=== PATIENT | female | born 1975 | race African-American/Black ===

== ENCOUNTER 2017-12-09 08:04 | Day surgery (SDC) | payer BC ==
[~2017-12-09] VITALS: Ht 162.6 cm; Wt 77.7 kg
[2017-12-09 08:27] VITALS: BP 112/75; PULSE 73; TEMP 98
[2017-12-09] MEDS ORDERED: BENADRYL25 M2 PO ×2 (08:30→08:31)
[2017-12-09] MEDS ORDERED: ADVIL200 MG PO (08:30)
[2017-12-09] MEDS ORDERED: PRILOSEC 20MG20 MG PO (10:21)
[2017-12-09 10:25] VITALS: BP 132/84; PULSE 82; TEMP 98.3
[2017-12-09 10:45] VITALS: BP 126/89; PULSE 69
[2017-12-09 11:00] VITALS: BP 114/78; PULSE 63
[2017-12-09 11:15] VITALS: BP 101/73; PULSE 66
== END 2017-12-09 11:30 | disposition home or self-care (01) ==
LOC: SDCO 08:04
DX: K44.9 Diaphragmatic hernia without obstruction or gangrene (principal); K29.30 Chronic superficial gastritis without bleeding; K29.80 Duodenitis without bleeding
CPT/HCPCS: J2250; J3010; J7030